=== PATIENT | male | born 1950 | race Caucasian/White ===

== ENCOUNTER → 2016-10-26 | Outpatient (CLI) | payer MEDICARE, BC ==
[~2016-10-26] MED LIST: FISH OIL 1000MG1 CAP PO; LIPITOR20 MG PO; LOW DOSE ASPIRI81 MG PO; NIACIN TIME RE500 MG PO; OMEGA 31000 MG PO; SIMVASTATIN20 MG PO; SYNTHROID0.05 MG/TA PO; VITAMIN D1000 IU PO; VITAMIN D31000 IU PO; ZOCOR 20MG20 MG PO
[2016-10-26 12:41] LABS: HIV 1/2 Antibodies Non-Reactive; HIV-1p24 Antigen Non-Reactive
== END ==
LOC: COL.LAB 11:20
PROVIDERS: Orthopaedic Surgery
DX: Z01.812 Encounter for preprocedural laboratory examination (principal); M17.11 Unilateral primary osteoarthritis, right knee

== ENCOUNTER → 2017-02-03 | Outpatient (CLI) | payer MEDICARE, BC ==
[2017-02-03 08:43] LABS: HIV 1/2 Antibodies Non-Reactive; HIV-1p24 Antigen Non-Reactive
== END ==
LOC: COL.LAB 07:30 → SURG 02-05 07:06 → EDSTATUS 02-05 10:59
PROVIDERS: Orthopaedic Surgery
DX: Z01.812 Encounter for preprocedural laboratory examination (principal); M17.12 Unilateral primary osteoarthritis, left knee